=== PATIENT | female | born 1960 | race Caucasian/White ===

== ENCOUNTER 2018-03-29 00:33 | Inpatient (IN) | payer OTHER ==
[2018-03-29] MEDS ORDERED: morphine CARPU-JECT 4 MG/1 ML DISP.SYRIN IVPUSH ONE (00:58)
[2018-03-29] MEDS ORDERED: morphine SULFATE 4 MG/ML VIAL ONE ×2 (01:03→07:36)
--- NOTE | 2018-03-29 01:16 | PDOC ---
History of Present Illness - General Stated Complaint: POSSIBLE L HIP FX Time Seen by Provider: 03/29/18 00:57 History Source: Patient - History of Present Illness Initial Comments: 03/29/18 01:25 The patient is a 57 year old female with PMH of NIDDM and MDD who was BIBEMS following a mechanical fall. Patient was walking in the kitchen of a relative' s home when she tripped over a dog dish falling on her L side hitting her head. No LOC, was unable to stand. Relative called 911. Patient is visiting from [place] for the holidays. NKDA Surgical: B/L partial knee replacement, cholecystectomy, R carpal tunnel repair , pilonidal cyst removal Social: 5 cigarettes daily, social alcohol, social marijuana PMD: In [place] Past History - Past Medical History Allergies/Adverse Reactions: Allergies Allergy/AdvReac Type Severity Reaction Status Date / Time No Known Allergies Allergy Verified 03/29/18 01:41 Home Medications: Ambulatory Orders Fluoxetine HCl [Prozac] 40 mg PO DAILY 03/29/18 Hydroxyzine HCl 25 mg PO QID 03/29/18 Meloxicam 15 mg PO DAILY 03/29/18 Metformin HCl [Metformin HCl ER] 1,000 mg PO BID 03/29/18 Naproxen 500 mg PO BID 03/29/18 Omeprazole 40 mg PO DAILY 03/29/18 Prazosin HCl [Minipress] 2 mg PO HS 03/29/18 traZODone HCL [Desyrel -] 150 mg PO HS 03/29/18 Review of Systems - Review of Systems Constitutional: No: Chills, Fever HEENTM: No: Recent change in vision, Hearing Loss Respiratory: No: Cough, Shortness of Breath Cardiac (ROS): No: Chest Pain, Lightheadedness, Palpitations, Syncope ABD/GI: No: Constipated, Diarrhea, Nausea, Vomiting Neurological: No: Numbness, Tingling *Physical Exam - Physical Exam General Appearance: Yes: Nourished, Appropriately Dressed HEENT: positive: EOMI, Normal Voice, Hearing Grossly Normal, Other (No mastoid eccymosis, no periorbital ecchymosis, no lesions/hematoma) Neck: positive: Trachea midline, Supple Respiratory/Chest: positive: Lungs Clear, Normal Breath Sounds Cardiovascular: positive: S1, S2. negative: JVD Vascular Pulses: Dorsalis-Pedis (R): 2+, Doralis-Pedis (L): 2+ Extremity: positive: Normal Capillary Refill, Pelvis Stable, Other (L hip internally rotated; 2+ DP pulses B/L) Neurologic: positive: Fully Oriented, Alert ED Treatment Course - LABORATORY CBC & Chemistry Diagram: 03/29/18 01:38 03/29/18 01:38 - RADIOLOGY Radiology Studies Ordered: Category Date Time Status CXRPORT [CHEST X-RAY PORTABLE*] [RAD] Stat Radiology 03/29/18 01:02 Taken Medical Decision Making - Medical Decision Making 03/29/18 01:28 57 year old female BIBEMS for L hip pain following fall. Hypertensive (170/46), other VS unremarkable @ presentation. Patient taken directly to XR. My read of XR shows L communinuted femur fracture. Morphine for pain control. 03/29/18 01:30 Case d/w Dr. Huff will take patient to OR tomorrow. Patient NPO. Counseled on plan of care. Lab pending and will admit for pre/post operative evaluation. 03/29/18 02:10 CBC unremarkable. CMP, T&S pending. 03/29/18 03:11 CMP unremarkable. Will microblog hospitalist for admission. Patient's pain controlled with Morphine + Tylenol. VSS 03/29/18 04:03 Case d/w Dr. Vaca (Resident) - patient admitted to inpatient medicine service. *DC/Admit/Observation/Transfer Diagnosis at time of Disposition: Femur fracture, left - Discharge Dispostion Condition at time of disposition: Fair Decision to Admit order: Yes - Referrals - Patient Instructions - Post Discharge Activity
--- NOTE | 2018-03-29 01:39 | PDOC ---
Attending Attestation - Resident Resident Name: JemalKady - ED Attending Attestation I have performed the following: I have examined & evaluated the patient, The case was reviewed & discussed with the resident, I agree w/resident's findings & plan - HPI HPI: 03/29/18 01:56 Pt comes with left hip pain after she fell onto her left side when she tripped over her dog's food/water bowl. - Physicial Exam PE: 03/29/18 01:57 Agree with resident exam - Medical Decision Making 03/29/18 01:57 Preop labs Ortho nylon mender aware. Pt will be admitted to medicine and will go to the OR in the AM. 03/29/18 02:25 All labs are normal; glc slight elevation at 189 03/29/18 02:34 CXR is normal. Heart Score/ECG Review - ECG Intrepretation Rhythm: Regular Rhythm - [place]: Normal - P and RI Prominent R with upright T in V1 (true posterior NV): No Delta Wave(s) Present: No WPW: No - QRS Poor R Wave Progression: No Q Wave Present: No - ST and T Early Repolarization: No Non Specific ST-T Wave changes: Yes Flattened T Waves: No Prolonged Q-T Interval: No - ECG Impressions Normal ECG: Yes Non-specific ST Elevation: No Ischemic Changes: Yes (septal Ts)
[2018-03-29] MEDS ORDERED: ACETAMINOPHEN 1000 MG/100 ML VIAL (NON FORMULARY) IVPB ONE (01:53)
[2018-03-29 02:00] LABS: BASO % 0.9 % (0-2.0); EOS % 4.1 % (0-4.5); HEMOGLOBIN 13.6 GM/dL (10.7-15.3); LYMPH % 26.4 % (8-40); MCH 30.4 pg (25.7-33.7); MCHC 33.1 g/dl (32.0-36.0); MEAN CELL VOLUME 91.6 fl (80-96); MEAN PLT VOLUME 9.4 fl (7.5-11.1); MONO % 5.6 % (3.8-10.2); PLATELET COUNT 225 K/MM3 (134-434); RBC 4.47 M/mm3 (3.60-5.2); RDW 13.8 % (11.6-15.6); WHITE BLOOD COUNT 12.6 K/mm3 (4.0-10.0)
[2018-03-29 02:03] LABS: INR 0.91 (0.83-1.09); PROTHROMBIN TIME (PATIENT) 10.7 SEC (9.7-13.0)
[2018-03-29 02:06] LABS: ACTIVATED PTT 30.5 SECONDS (25.2-36.5)
[2018-03-29] MEDS ORDERED: ACETAMINOPHEN INJECTION 100 ML IVPB ONE (02:11)
[2018-03-29 02:13] LABS: ALBUMIN 3.9 g/dl (3.4-5.0); ALK PHOS 158 U/L (45-117); ANION GAP 9 MMOL/L (8-16); BILIRUBIN,TOTAL 0.3 mg/dL (0.2-1); BLOOD UREA NITROGEN 17 mg/dL (7-18); CALCIUM 8.8 mg/dL (8.5-10.1); CHLORIDE 103 mmol/L (98-107); CO2 25 mmol/L (21-32); GLUCOSE,RANDOM 189 mg/dL (74-106); POTASSIUM 3.8 mmol/L (3.5-5.1); SGOT/AST 30 U/L (15-37); SGPT/ALT 52 U/L (13-61); SODIUM 138 mmol/L (136-145); TOT PROT 7.8 g/dl (6.4-8.2)
[2018-03-29] MEDS ORDERED: HYDROmorphone HCL CARPU-JECT 2 MG/1 ML DISP.SYRIN IVPUSH ONE ×2 (02:35→04:12)
[2018-03-29] MEDS ORDERED: HYDROmorphone HCl 2 MG/ML VIAL ONE ×3 (02:37→16:46)
--- NOTE | 2018-03-29 04:01 | PN ---
Teaching Attending Note Name of Resident: Galen Vaca ATTENDING PHYSICIAN STATEMENT I saw and evaluated the patient. I reviewed the resident's note and discussed the case with the resident. I agree with the resident's findings and plan as documented. SUBJECTIVE: Patient is a 57 year old woman with PMH of NIDDM, B/L partial knee replacement, HTN, cholecystectomy, R carpal tunnel repair, pilonidal cyst removal, PTSD and Major deppressive disorder who was BIBEMS following a mechanical fall. Patient was walking in the kitchen of a relative's home when she tripped over a dog dish falling on her L side hitting her head. No LOC. Was unable to stand. Smokes cigarettes as well as marijuana. Patient is visiting from [place] for the holidays. OBJECTIVE: Alert Vital Signs Period Temp Pulse Resp BP Sys/Queen Pulse Ox Last 24 Hr 97.8 F 65 18 170/46 99 HEENT: No Jaundice, eye redness or discharge, PERRLA, EOMI. Normocephalic, atraumatic. External ears are normal and hearing is grossly intact. No nasal discharge. Neck: Supple, nontender. No palpable adenopathy or thyromegaly. No JVD Chest: Good effort. Clear to auscultation and percussion. Heart: Regular. No S3, rub or murmur Abdomen: Not distended, soft, nontender and no HSM. No rebound or guarding. Normoactive bowel sounds. Ext: Peripheral pulses intact. No leg edema. Left hip tender and internally rotated. Distal sensory and motor function intact. Skin: Warm and dry. No petechiae, rash or ecchymosis. Neuro: Alert. Oriented x3. CN 2-12 grossly intact. Sensation grossly intact in all four extremities and DTR are symmetric. Abnormal Lab Results 03/29/18 03/29/18 01:38 01:38 WBC 12.6 H Random Glucose 189 H Alkaline Phosphatase 158 H ASSESSMENT AND PLAN: 1. Left hip fracture after Mechanical fall - Being kept NPO for possible surgery today. Will give IV 0.45% NaCl at 30 ml/hour. Pain control with IV morphine. Leukocytosis likely due to stress, but will send UA to exclude infection. Repeat BP improved. Will restart home antihypertensive drugs to ultimately attain normotension. Nonpharmacologic measures to control hypertension like weight loss, salt restriction and exercise discussed. Patient counseled to stop taking Naprosyn and Meloxicam because potential renal and GI side effects. 2. DM - For now, we will hold the home diabetes drugs and implement sliding scale insulin regimen. Provide comprehensive diabetes care with patient teaching and counseling about the importance of euglycemia, eye care and foot care. 3. Tobacco Use We will provide patient all the necessary assistance to facilitate smoking cessation and prescribe Nicotine patch. 4. Obesity - Will provide patient all the necessary assistance, counseling and positive reinforcement to facilitate weight loss. Consult tamper operator. 5. DVT prophylaxis - SCDs. Start Lovenox post op. 6. Advance directives - Full code
[2018-03-29] MEDS ORDERED: morphine SULFATE 4 MG/ML VIAL IVPUSH PRN (04:51)
--- NOTE | 2018-03-29 04:51 | HP ---
CHIEF COMPLAINT: fall, L hip frx PCP: John[facility] in [place] HISTORY OF PRESENT ILLNESS: 57 yo F PMH of NIDDM, B/L partial knee replacement, cholecystectomy, appendectomy, R carpal tunnel repair, pilonidal cyst removal, PTSD and MDD, presents following a L side mechanical fall. Patient was walking in the kitchen of a relative's home when she tripped over a dog dish falling on her L side. pt does not know whether she hit her head. No LOC or any lightheadedness prior to fall. Was unable to stand after fall. denies fevers, GONSALEZ, sob, cp, urinary sxs, n/v/d, recent illnesses, or neuro deficits. pt does endorse chronic tingling in feet b/l due to her DM. denies DM ulcers. Patient is visiting from [place] for the holidays. ER course was notable for: (1) Hypertensive (170/46), other VS unremarkable @ presentation. (2) CXR (3)Dr. Huff will take patient to OR tomorrow. Patient NPO. Morphine, Tylenol, dilauded Recent Travel: PAST MEDICAL HISTORY: has had recent eye f/u within past 3 mo. per pt last A1c 7.6 PAST SURGICAL HISTORY: as per hpi Social History: Smokin cigarettes daily for 30 yr. quit 2 yr ago but restarted 2 wks ago, Alcohol: occasional Drugs: occasional marijuana Family History: HTN, DM . sister from cervical CA at 45 yo Allergies - compazine - lock jaw No Known Allergies Allergy (Verified 03/29/18 01:41) HOME MEDICATIONS: Home Medications Medication Instructions Recorded Fluoxetine HCl [Prozac] 40 mg PO DAILY 03/29/18 Hydroxyzine HCl 25 mg PO QID 03/29/18 Meloxicam 15 mg PO DAILY 03/29/18 Metformin HCl [Metformin HCl ER] 1,000 mg PO BID 03/29/18 Naproxen 500 mg PO BID 03/29/18 Omeprazole 40 mg PO DAILY 03/29/18 Prazosin HCl [Minipress] 2 mg PO HS 03/29/18 traZODone HCL [Desyrel -] 150 mg PO HS 03/29/18 REVIEW OF SYSTEMS as per HPI PHYSICAL EXAMINATION Vital Signs - 24 hr 03/29/18 03/29/18 03/29/18 01:39 04:20 04:49 Temperature 97.8 F Pulse Rate 65 Pulse Rate [ 69 79 Apical] Respiratory 18 20 18 Rate Blood Pressure 170/46 L Blood Pressure 135/84 116/80 [Left Arm] O2 Sat by Pulse 99 99 97 Oximetry (%) GENERAL: Awake, alert, and fully oriented, in no acute distress. HEAD: Normal with no signs of trauma. EYES: Pupils equal, round and reactive to light, extraocular movements intact, sclera anicteric, conjunctiva clear. No lid lag. EARS, NOSE, THROAT: Ears normal, nares patent, oropharynx clear without exudates. Moist mucous membranes. NECK: Normal range of motion, supple without lymphadenopathy, JVD, or masses. LUNGS: Breath sounds equal, clear to auscultation bilaterally. No wheezes, and no crackles. No accessory muscle use. HEART: Regular rate and rhythm, normal S1 and S2 without murmur, rub or gallop. ABDOMEN: Soft, nontender, not distended, normoactive bowel sounds, no guarding, no rebound, no masses. No hepatomegaly or splenomegaly. MUSCULOSKELETAL: Normal range of motion at all joints. No bony deformities or tenderness. No CVA tenderness. UPPER EXTREMITIES: 2+ pulses, warm, well-perfused. No cyanosis. No clubbing. No peripheral edema. LOWER EXTREMITIES: 2+ pulses, warm, well-perfused. Left hip tender and internally rotated. Distal sensory and motor function intact. No peripheral edema. NEUROLOGICAL: Cranial nerves II-XII intact. Normal speech. Normal gait. PSYCHIATRIC: Cooperative. Good eye contact. Appropriate mood and affect. SKIN: Warm, dry, normal turgor, no rashes or lesions noted, normal capillary refill. Laboratory Results - last 24 hr 03/29/18 03/29/18 03/29/18 01:38 01:38 01:38 WBC 12.6 H RBC 4.47 Hgb 13.6 Hct 41.0 MCV 91.6 MCH 30.4 MCHC 33.1 RDW 13.8 Plt Count 225 MPV 9.4 Absolute Neuts (auto) 8.0 Neutrophils % 63.0 Lymphocytes % 26.4 Monocytes % 5.6 Eosinophils % 4.1 Basophils % 0.9 Nucleated RBC % 0 PT with INR 10.70 INR 0.91 PTT (Actin FS) 30.5 Sodium 138 Potassium 3.8 Chloride 103 Carbon Dioxide 25 Anion Gap 9 BUN 17 Creatinine 1.0 Creat Clearance w eGFR 56.95 Random Glucose 189 H Calcium 8.8 Total Bilirubin 0.3 AST 30 ALT 52 Alkaline Phosphatase 158 H Total Protein 7.8 Albumin 3.9 Blood Type Antibody Screen 03/29/18 01:38 WBC RBC Hgb Hct MCV MCH MCHC RDW Plt Count MPV Absolute Neuts (auto) Neutrophils % Lymphocytes % Monocytes % Eosinophils % Basophils % Nucleated RBC % PT with INR INR PTT (Actin FS) Sodium Potassium Chloride Carbon Dioxide Anion Gap BUN Creatinine Creat Clearance w eGFR Random Glucose Calcium Total Bilirubin AST ALT Alkaline Phosphatase Total Protein Albumin Blood Type O POSITIVE Antibody Screen Negative ASSESSMENT/PLAN: 57 yo F PMH of NIDDM, B/L partial knee replacement, cholecystectomy, appendectomy, R carpal tunnel repair, pilonidal cyst removal, PTSD and MDD, presents following a L side mechanical fall and found w/ L hip frx. Left hip fracture s/p Mechanical fall - XR showing L hip frx ortho consult NPO for possible surgery today IV 0.45% NaCl at 30 ml/hour s/p Morphine, Tylenol, dilauded in ED Pain control with IV morphine and Tylenol can start bowel regimen following surgery Leukocytosis likely 2/2 stress, but will send UA to exclude infection. avoid Naprosyn and Meloxicam because potential renal and GI side effects. CXR appears wnl and w/o focal consolidations possible bone fragility w/ elevated alk phosph and frx in middle/elderly aged pt. will order PTH to w/u possible causes of acute frx Hypertensive (170/46), other VS unremarkable @ presentation - Repeat BP improved Psych c/w fluoxetine consider restarting other home psych meds may need med rec for hydroxyzine DM - per pt last A1c 7.6 hold home diabetes drugs BGM ACHS ISS A1C FEN IV 0.45% NaCl at 30 ml/hour replete prn NPO prophylaxis - SCDs. Start Lovenox post op. protonix Advance directives - Full code Dispo med/surg NPO for possible surgery today Visit type - Emergency Visit Emergency Visit: Yes ED Registration Date: 03/29/18 Care time: The patient presented to the Emergency Department on the above date and was hospitalized for further evaluation of their emergent condition. - New Patient This patient is new to me today: Yes Date on this admission: 03/29/18 - Critical Care Critical Care patient: No
[2018-03-29] MEDS ORDERED: ACETAMINOPHEN 1000 MG/100 ML VIAL (NON FORMULARY) IVPB PRN (05:02)
[2018-03-29] MEDS ORDERED: PANTOPRAZOLE 40 MG TABLET (FP) PO SCH ×2 (05:07→10:00)
[2018-03-29] MEDS ORDERED: SODIUM CHLORIDE 0.45% 1,000 ML IV SCH (05:45)
[2018-03-29 06:18] LABS: BASO % 0.5 % (0-2.0); EOS % 1.8 % (0-4.5); HEMATOCRIT 38.9 % (32.4-45.2); HEMOGLOBIN 12.5 GM/dL (10.7-15.3); LYMPH % 24.1 % (8-40); MCH 29.6 pg (25.7-33.7); MCHC 32.1 g/dl (32.0-36.0); MEAN CELL VOLUME 92.4 fl (80-96); MEAN PLT VOLUME 9.2 fl (7.5-11.1); MONO % 6.8 % (3.8-10.2); NEUT % 66.8 % (42.8-82.8); PLATELET COUNT 264 K/MM3 (134-434); RBC 4.21 M/mm3 (3.60-5.2); RDW 13.6 % (11.6-15.6); WHITE BLOOD COUNT 21.5 K/mm3 (4.0-10.0)
[2018-03-29] MEDS ORDERED: INSULIN (NOVOLOG) ASPART 100 UNITS/ML 10ML VIAL ONE (06:34)
[2018-03-29] MEDS: INSULIN SLIDING SCALE (NOVOLOG) 1 VIAL SQ SCH ×4 (06:42→22:11)
[2018-03-29 08:03] LABS: ALBUMIN 3.6 g/dl (3.4-5.0); ALK PHOS 114 U/L (45-117); ANION GAP 5 MMOL/L (8-16); BILIRUBIN,TOTAL 0.3 mg/dL (0.2-1); BLOOD UREA NITROGEN 17 mg/dL (7-18); CALCIUM 8.5 mg/dL (8.5-10.1); CHLORIDE 106 mmol/L (98-107); CO2 27 mmol/L (21-32); CREATININE 1.1 mg/dL (0.55-1.3); GLUCOSE,RANDOM 235 mg/dL (74-106); MAGNESIUM 1.8 mg/dL (1.8-2.4); PHOSPHOROUS 5.3 mg/dL (2.5-4.9); POTASSIUM 4.2 mmol/L (3.5-5.1); SGOT/AST 26 U/L (15-37); SGPT/ALT 45 U/L (13-61); SODIUM 138 mmol/L (136-145); TOT PROT 6.9 g/dl (6.4-8.2)
[2018-03-29] MEDS ORDERED: FLUoxetine HCL 20 MG CAPSULE (FP) PO SCH (10:00)
[2018-03-29] MEDS ORDERED: hydrOXYzine HCL 25 MG TABLET (FP) PO SCH (10:00)
[2018-03-29] MEDS ORDERED: PATIENT'S OWN MEDICATION (NON-FORMULARY) (Fluoxetine Hcl [Prozac] 40 MG) PO SCH (10:00)
--- NOTE | 2018-03-29 10:46 | PN ---
Physical Exam: SUBJECTIVE: Patient seen and examined at bedside. Pt still complaining of L sided hip pain. Unable to move due to pain. Otherwise, no acute events overnight. OBJECTIVE: Vital Signs Temperature 97.8 F 03/29/18 09:00 Pulse Rate 72 03/29/18 09:00 Respiratory Rate 18 03/29/18 09:00 Blood Pressure 109/65 03/29/18 09:00 O2 Sat by Pulse Oximetry (%) 95 03/29/18 06:21 GENERAL: Lethargic, alert, and fully oriented, in no acute distress. HEAD: Normal with no signs of trauma. EYES: Pupils equal, round and reactive to light, extraocular movements intact, sclera anicteric, conjunctiva clear. No lid lag. EARS, NOSE, THROAT: Ears normal, nares patent, oropharynx clear without exudates. Moist mucous membranes. NECK: Normal range of motion, supple without lymphadenopathy, JVD, or masses. LUNGS: Breath sounds equal, clear to auscultation bilaterally. No wheezes, and no crackles. No accessory muscle use. HEART: Regular rate and rhythm, normal S1 and S2 without murmur, rub or gallop. ABDOMEN: Soft, nontender, not distended, normoactive bowel sounds, no guarding, no rebound, no masses. No hepatomegaly or splenomegaly. MUSCULOSKELETAL: Normal range of motion at all joints. No bony deformities or tenderness. No CVA tenderness. UPPER EXTREMITIES: 2+ pulses, warm, well-perfused. No cyanosis. No clubbing. No peripheral edema. LOWER EXTREMITIES: 2+ pulses, warm, well-perfused. Left hip tender and internally rotated. Distal sensory and motor function intact. No peripheral edema. NEUROLOGICAL: Cranial nerves II-XII intact. Normal speech. PSYCHIATRIC: Cooperative. Good eye contact. Appropriate mood and affect. SKIN: Warm, dry, normal turgor, no rashes or lesions noted, normal capillary refill. CBCD WBC 21.5 K/mm3 (4.0-10.0) H 03/29/18 05:40 RBC 4.21 M/mm3 (3.60-5.2) 03/29/18 05:40 Hgb 12.5 GM/dL (10.7-15.3) 03/29/18 05:40 Hct 38.9 % (32.4-45.2) 03/29/18 05:40 MCV 92.4 fl (80-96) 03/29/18 05:40 MCHC 32.1 g/dl (32.0-36.0) 03/29/18 05:40 RDW 13.6 % (11.6-15.6) 03/29/18 05:40 Plt Count 264 K/MM3 (134-434) 03/29/18 05:40 MPV 9.2 fl (7.5-11.1) 03/29/18 05:40 CMP Sodium 138 mmol/L (136-145) 03/29/18 06:00 Potassium 4.2 mmol/L (3.5-5.1) 03/29/18 06:00 Chloride 106 mmol/L (98-107) 03/29/18 06:00 Carbon Dioxide 27 mmol/L (21-32) 03/29/18 06:00 Anion Gap 5 MMOL/L (8-16) L 03/29/18 06:00 BUN 17 mg/dL (7-18) 03/29/18 06:00 Creatinine 1.1 mg/dL (0.55-1.3) 03/29/18 06:00 Creat Clearance w eGFR 51.02 (>60) 03/29/18 06:00 Calcium 8.5 mg/dL (8.5-10.1) 03/29/18 06:00 Total Bilirubin 0.3 mg/dL (0.2-1) 03/29/18 06:00 AST 26 U/L (15-37) 03/29/18 06:00 ALT 45 U/L (13-61) 03/29/18 06:00 Alkaline Phosphatase 114 U/L (45-117) 03/29/18 06:00 Total Protein 6.9 g/dl (6.4-8.2) 03/29/18 06:00 Albumin 3.6 g/dl (3.4-5.0) 03/29/18 06:00 Active Medications Acetaminophen (Ofirmev Injection -) 1,000 mg IVPB Q6H PRN PRN Reason: PAIN LEVEL 6-10 Fluoxetine HCl (Prozac -) 40 mg PO DAILY GUILLERMO Last Admin: 03/29/18 10:21 Dose: Not Given Sodium Chloride (1/2 Normal Saline) 1,000 mls @ 30 mls/hr IV ASDIR [facility] Last Admin: 03/29/18 06:20 Dose: 30 mls/hr Insulin Aspart (Novolog Vial Sliding Scale -) 1 vial SQ [facility]; Protocol Last Admin: 03/29/18 06:42 Dose: 6 unit Morphine Sulfate (Morphine Sulfate) 4 mg IVPUSH Q4H PRN PRN Reason: PAIN LEVEL 7 - 10 Last Admin: 03/29/18 07:40 Dose: 4 mg Pantoprazole Sodium (Protonix -) 40 mg PO DAILY [facility] Last Admin: 03/29/18 10:21 Dose: Not Given IMAGING: * Hip/Pelvis x-ray: Acute left femoral intertrochanteric fx * CXR: No acute pathology. * Renal U/S: ASSESSMENT/PLAN: 57 yo F PMH of NIDDM, B/L partial knee replacement, cholecystectomy, appendectomy, R carpal tunnel repair, pilonidal cyst removal, PTSD and MDD, presents following a L side mechanical fall and found w/ L hip frx. #Left hip fracture s/p Mechanical fall -Hip/Pelvis x-ray noted above -Ortho consult: OR today; f/u ortho recs -IV 0.45% NaCl at 30 ml/hour -Morphine 4mg Q4H IVP PRN for pain -Can start bowel regimen following surgery -Leukocytosis likely 2/2 stress, but will send UA to exclude infection. -Avoid Naprosyn and Meloxicam because potential renal and GI side effects. -Possible bone fragility w/ elevated Alk Phos and fracture in middle/elderly aged pt. Will order PTH to w/u possible causes of acute frx; PTH pending #MDD Cont home med: -Fluoxetine 40 mg PO QD consider restarting other home psych meds may need med rec for hydroxyzine #DM - per pt last A1c 7.6 -hold home diabetes drugs; A1c 8.5 -BGM ACHS -ISS #FEN -1/2NS at 30 -recheck lytes in AM -NPO for surgery #Prophylaxis -DVT: SCDs. Start Lovenox post op once cleared by surg -GI: Protonix 40 mg PO QD Dispo -cont to monitor on med-surg -full code Visit type - Emergency Visit Emergency Visit: Yes ED Registration Date: 03/29/18 Care time: The patient presented to the Emergency Department on the above date and was hospitalized for further evaluation of their emergent condition. - New Patient This patient is new to me today: Yes Date on this admission: 03/29/18 - Critical Care Critical Care patient: No
[2018-03-29 11:01] LABS: ANISOCYTOSIS 2+; MACROCYTOSIS 0; PLATELET ESTIMATE NORMAL; TEAR DROP CELLS 1+
[2018-03-29] MEDS ORDERED: MIDAZOLAM HCL 2 MG/2 ML SINGLE DOSE VIAL ONE ×2 (13:17→14:11)
[2018-03-29] MEDS ORDERED: BUPIVACAINE HCL/PF 0.5% (5MG/ML) 10 ML VIAL ONE (13:30)
[2018-03-29] MEDS ORDERED: ceFAZolin SODIUM 1 GM VIAL ONE (14:00)
[2018-03-29] MEDS ORDERED: SODIUM CHLORIDE 0.9% P/F 10 ML VIAL IJ ONE (14:00)
[2018-03-29] MEDS ORDERED: ePHEDrine SULFATE 50 MG/1 ML AMPULE ONE (14:08)
[2018-03-29] MEDS ORDERED: ceFAZolin SODIUM 1 GM VIAL IVPB ONE (14:08)
--- NOTE | 2018-03-29 14:31 | EKG ---
Test Reason : Blood Pressure : / mmHG Vent. Rate : 068 BPM Atrial Rate : 068 BPM P-R Int : 136 ms QRS Dur : 078 ms QT Int : 428 ms P-R-T Axes : 061 016 052 degrees QTc Int : 455 ms POOR DATA QUALITY, INTERPRETATION MAY BE ADVERSELY AFFECTED NORMAL SINUS RHYTHM NORMAL ECG NO PREVIOUS ECGS AVAILABLE Confirmed by Basilio Swenson ([id number]) on 03/29/2018 2:30:35 PM Referred By: Confirmed By:Basilio Swenson
--- NOTE | 2018-03-29 14:59 | CONSULT ---
Consult - text type - Consultation Consultation Note: FULL CONSULT DICTATED IMP: L IT HIP FX PLAN: --> OR FOR L GAMMA NAIL TODAY
[2018-03-29] MEDS ORDERED: LACTATED RINGERS SOLUTION 1,000 ML IV SCH (15:00)
--- NOTE | 2018-03-29 15:00 | OP ---
Operative Note - Note: Operative Date: 03/29/18 Pre-Operative Diagnosis: L IT HIP FX Operation: L GAMMA NAIL Post-Operative Diagnosis: Same as Pre-op Surgeon: Maynor Huff Anesthesia: Spinal Estimated Blood Loss (mls): 50 Operative Report Dictated: Yes
--- NOTE | 2018-03-29 15:59 | CONS ---
DATE OF CONSULTATION: 03/29/2018 ORTHOPEDIC CONSULTATION/[facility] The patient is a 57-year-old [id number] diabetic, smoker, status post a fall earlier this evening, complaining of pain in her left hip and inability to walk. She was seen in the emergency room, where they called me at 1:30 in the morning, informing me the patient had a left intertrochanteric hip fracture. The patient was admitted to the hospital for my evaluation. On physical exam, her left lower extremity showed it externally rotated, markedly increased pain with flexion/extension and any motion of the left hip. Calves were soft, nontender. Full range of motion of left knee, ankle, and toes. She does have surgical scars on the medial aspect of bilateral knees where partial knee replacements were performed at another institution. X-rays revealed a left intertrochanteric hip fracture. IMPRESSION: Left intertrochanteric hip fracture. Risks, benefits, alternatives discussed with patient and with family in great detail. She is visiting here from [place] and staying with 2 family members here. We went through the risks, benefits, and alternatives. Patient will be booked for a left gamma nail today. OTTO SOW M.D. [id number]
--- NOTE | 2018-03-29 16:04 | PN ---
Teaching Attending Note Name of Resident: Henrietta Goddard ATTENDING PHYSICIAN STATEMENT I saw and evaluated the patient. I reviewed the resident's note and discussed the case with the resident. I agree with the resident's findings and plan as documented. SUBJECTIVE: Patient is a 57yo female c/o having left hip pain s/p fall. C/o having severe left hip pain. OBJECTIVE: Vital Signs Temperature 97.8 F 03/29/18 09:00 Pulse Rate 72 03/29/18 09:00 Respiratory Rate 18 03/29/18 09:00 Blood Pressure 109/65 03/29/18 09:00 O2 Sat by Pulse Oximetry (%) 99 03/29/18 07:45 GENERAL: Lethargic, alert, and fully oriented, in no acute distress. HEAD: Normal with no signs of trauma. EYES: Pupils equal, round and reactive to light, extraocular movements intact, sclera anicteric, conjunctiva clear. EARS, NOSE, THROAT: Ears normal, oropharynx clear without exudates. Moist mucous membranes. NECK: Normal range of motion, supple without lymphadenopathy, JVD, or masses. LUNGS: Breath sounds equal, clear to auscultation bilaterally. No wheezes, and no crackles. No accessory muscle use. HEART: Regular rate and rhythm, normal S1 and S2 without murmur, rub or gallop. ABDOMEN: Soft, nontender, not distended, normoactive bowel sounds, no guarding, no rebound, no masses. No hepatomegaly or splenomegaly. EXTREMITIES: 2+ pulses, warm, well-perfused. Left hip tender and internally rotated. Distal sensory and motor function intact. No peripheral edema. NEUROLOGICAL: Cranial nerves II-XII intact. Normal speech. PSYCHIATRIC: Cooperative. Good eye contact. Appropriate mood and affect. SKIN: Warm, dry, normal turgor, no rashes or lesions noted, normal capillary refill. CBCD WBC 21.5 K/mm3 (4.0-10.0) H 03/29/18 05:40 RBC 4.21 M/mm3 (3.60-5.2) 03/29/18 05:40 Hgb 12.5 GM/dL (10.7-15.3) 03/29/18 05:40 Hct 38.9 % (32.4-45.2) 03/29/18 05:40 MCV 92.4 fl (80-96) 03/29/18 05:40 MCHC 32.1 g/dl (32.0-36.0) 03/29/18 05:40 RDW 13.6 % (11.6-15.6) 03/29/18 05:40 Plt Count 264 K/MM3 (134-434) 03/29/18 05:40 MPV 9.2 fl (7.5-11.1) 03/29/18 05:40 CMP Sodium 138 mmol/L (136-145) 03/29/18 06:00 Potassium 4.2 mmol/L (3.5-5.1) 03/29/18 06:00 Chloride 106 mmol/L (98-107) 03/29/18 06:00 Carbon Dioxide 27 mmol/L (21-32) 03/29/18 06:00 Anion Gap 5 MMOL/L (8-16) L 03/29/18 06:00 BUN 17 mg/dL (7-18) 03/29/18 06:00 Creatinine 1.1 mg/dL (0.55-1.3) 03/29/18 06:00 Creat Clearance w eGFR 51.02 (>60) 03/29/18 06:00 Random Glucose 235 mg/dL (74-106) H 03/29/18 06:00 Calcium 8.5 mg/dL (8.5-10.1) 03/29/18 06:00 Total Bilirubin 0.3 mg/dL (0.2-1) 03/29/18 06:00 AST 26 U/L (15-37) 03/29/18 06:00 ALT 45 U/L (13-61) 03/29/18 06:00 Alkaline Phosphatase 114 U/L (45-117) 03/29/18 06:00 Total Protein 6.9 g/dl (6.4-8.2) 03/29/18 06:00 Albumin 3.6 g/dl (3.4-5.0) 03/29/18 06:00 Current Medications Generic Name Dose Route Start Last Admin Trade Name Freq PRN Reason Stop Dose Admin Acetaminophen 1,000 mg 03/29/18 15:32 Ofirmev Injection - IVPB Q6H PRN PAIN LEVEL 6-10 Enoxaparin Sodium 40 mg 03/30/18 10:00 Lovenox - SQ DAILY [facility] Fluoxetine HCl 40 mg 03/30/18 10:00 Prozac - PO DAILY [facility] Lactated Ringer's 1,000 mls @ 75 mls/hr 03/29/18 15:32 Lactated Ringers Solution IV ASDIR [facility] Sodium Chloride 1,000 mls @ 30 mls/hr 03/29/18 15:32 1/2 Normal Saline IV ASDIR [facility] Cefazolin Sodium 1 gm/ 50 mls @ 100 mls/hr 03/29/18 20:00 Dextrose IVPB 03/30/18 04:29 Q8H [facility] Insulin Aspart 1 vial 03/29/18 16:30 Novolog Vial Sliding Scale - SQ ACHS [facility] Protocol Morphine Sulfate 4 mg 03/29/18 15:32 Morphine Sulfate IVPUSH Q4H PRN PAIN LEVEL 7 - 10 Pantoprazole Sodium 40 mg 03/30/18 10:00 Protonix - PO DAILY [facility] Home Medications Medication Instructions Recorded Fluoxetine HCl [Prozac] 40 mg PO DAILY 03/29/18 Hydroxyzine HCl 25 mg PO QID 03/29/18 Meloxicam 15 mg PO DAILY 03/29/18 Metformin HCl [Metformin HCl ER] 1,000 mg PO BID 03/29/18 Naproxen 500 mg PO BID 03/29/18 Omeprazole 40 mg PO DAILY 03/29/18 Prazosin HCl [Minipress] 2 mg PO HS 03/29/18 traZODone HCL [Desyrel -] 150 mg PO HS 03/29/18 ASSESSMENT AND PLAN: 57 yo F PMH of NIDDM, B/L partial knee replacement, cholecystectomy, appendectomy, R carpal tunnel repair, pilonidal cyst removal, PTSD and MDD, presents following a L side mechanical fall and found w/ L hip frx. #POD# 0 s/p Left hip fracture with repair s/p Mechanical fall , on IV tylenol - #MDD : cont home med:Fluoxetine 40 mg PO QD #T2Dm A1c 8.5, BGM ACHS, ISS -DVT Px: SCDs. Start Lovenox post op once cleared by surg -GI: Protonix 40 mg PO QD
--- NOTE | 2018-03-29 17:33 | SPEC ---
DATE OF OPERATION: 03/29/2018 PREOPERATIVE DIAGNOSIS: Left intertrochanteric hip fracture. POSTOPERATIVE DIAGNOSIS: Left intertrochanteric hip fracture. PROCEDURE: Left Gamma nailing. SURGICAL ATTENDING: Maynor Huff MD [employer] OPERATOR: REBECCA Mao ANESTHESIA: Spinal. CLOSURE: A short 125 degree Gamma nail with appropriate interlocking screws, No. 1 Vicryl fascia, 0 and 2-0 subcutaneous, fidelina to skin. ESTIMATED BLOOD LOSS: 50 mL. COMPLICATIONS: None. CONDITION: To Recovery in stable condition. DESCRIPTION OF THE PROCEDURE: The patient was taken to the operating room on March 29, 2018. IV Kefzol was administered prophylactically prior to the case. Anesthesia was administered by the anesthesiologist. The patient was then fastened to the fracture table with all prominences well padded. Excellent reduction of the fracture was confirmed in AP and lateral plane by use of fluoroscopy. The left hip area was then prepped and draped in the usual sterile fashion by use of a shower curtain. A small 2-cm longitudinal incision over the tip of the greater trochanter was incised, hemostasis achieved using Bovie cautery. Sharp dissection was carried through the fascia. A guidewire was drilled from the tip of the greater trochanter into the intramedullary canal past the fracture. This was directed by fluoroscopy in both the AP and lateral plane. This was overreamed with a proximal reamer. A short Gamma nail was then malleted down into place. Using the outrigger and a small stab incision laterally, a guidewire was drilled from the lateral aspect of the femur, through the jamee, through the neck into the femoral head. Proper placement was confirmed in the AP and lateral plane by using the image intensifier. The guidewire was measured for length, reamed with a triple reamer, and then screwed with the appropriate-sized lag screw. With the traction removed, the compression device was used to compress the fracture. A set screw was placed from above in the dynamic fashion. Again using the outrigger and through a small stab incision distally, a distal hole was drilled, depth gauged and screwed with the appropriate length locking screw in the static hole. The outrigger was removed. The x-rays in the AP and lateral plane revealed excellent position of the hardware with excellent reduction of the fracture. All incisions were irrigated out with copious amounts of irrigation. The fascia was closed in 0 Vicryl, 2-0 subcutaneous, and fidelina to the skin. Sterile pressure dressing was applied, patient awakened from anesthesia and transferred to Recovery in stable condition. No complications. Estimated blood loss negligible. Barbara MCCOY/[id number]
[2018-03-29] MEDS ORDERED: HYDROmorphone HCl 2 MG/ML VIAL IVPUSH ONE ×2 (18:00→18:11)
[2018-03-29] MEDS ORDERED: CEFAZOLIN 1 GM in DEXTROSE 5%-WATER - 50 ML IVPB SCH (18:00)
[2018-03-29] MEDS: SODIUM CHLORIDE 0.45% 1,000 ML IV SCH ×2 (18:30→19:00)
[2018-03-29] MEDS: morphine SULFATE 4 MG/ML VIAL IVPUSH PRN ×2 (20:08→23:51)
[2018-03-29] MEDS: LACTATED RINGERS SOLUTION 1,000 ML IV SCH (20:44)
[2018-03-29] MEDS: CEFAZOLIN 1 GM in DEXTROSE 5%-WATER - 50 ML IVPB SCH ×2 (21:57→21:59)
[2018-03-29] MEDS: CEFAZOLIN 1 GM/D5W 1 GM/50 ML BAG IVPB SCH (22:00)
[2018-03-29 22:43] VITALS: BMI 30.1
[2018-03-30] MEDS: morphine SULFATE 4 MG/ML VIAL IVPUSH PRN ×3 (03:58→17:45)
[2018-03-30] MEDS: CEFAZOLIN 1 GM/D5W 1 GM/50 ML BAG IVPB SCH (04:55)
[2018-03-30] MEDS: ACETAMINOPHEN 1000 MG/100 ML VIAL (NON FORMULARY) IVPB PRN ×2 (05:39→11:39)
[2018-03-30] MEDS: INSULIN SLIDING SCALE (NOVOLOG) 1 VIAL SQ SCH ×4 (06:42→21:07)
[2018-03-30] MEDS ORDERED: INSULIN (NOVOLOG) ASPART 100 UNITS/ML 10ML VIAL ONE (06:50)
[2018-03-30 07:31] LABS: BASO % 0.9 % (0-2.0); EOS % 1.2 % (0-4.5); HEMATOCRIT 31.4 % (32.4-45.2); HEMOGLOBIN 10.2 GM/dL (10.7-15.3); LYMPH % 24.7 % (8-40); MCH 29.8 pg (25.7-33.7); MCHC 32.6 g/dl (32.0-36.0); MEAN CELL VOLUME 91.4 fl (80-96); MEAN PLT VOLUME 9.5 fl (7.5-11.1); MONO % 7.1 % (3.8-10.2); NEUT % 66.1 % (42.8-82.8); PLATELET COUNT 169 K/MM3 (134-434); RBC 3.44 M/mm3 (3.60-5.2); RDW 13.6 % (11.6-15.6); WHITE BLOOD COUNT 11.3 K/mm3 (4.0-10.0)
--- NOTE | 2018-03-30 08:08 | PN ---
Physical Exam: SUBJECTIVE: Patient seen and examined at bedside. S/p L gamma nail sx, POD #1. Pt complaining of pain in L leg, requesting more pain meds for relief. Denies chest pain, sob, abd pain, n/v. Good PO intake, pt is eating breakfast during interview. OBJECTIVE: Vital Signs Temperature 98.7 F 03/30/18 10:00 Pulse Rate 70 03/30/18 10:00 Respiratory Rate 20 03/30/18 10:00 Blood Pressure 120/60 03/30/18 10:00 O2 Sat by Pulse Oximetry (%) 96 03/30/18 09:00 GENERAL: AAOx3. NAD. HEENT: AT/NC. EOMI. DAYAMI. Moist mucus membranes. No facial droop noted. NECK: Supple. No LAD/JVD. LUNGS: CTA B/L. No wheezes noted. HEART: RRR. Normal S1, S2. No murmurs noted. ABDOMEN: Obese. Soft NT/ND. Hypoactive bowel sounds. EXTREMITIES: 2+ pulses, warm, well-perfused, no edema. L hip seen with surgical dressing c/d/i. Slight visible blood noted on dressing, but unchanged since yesterday. NEUROLOGICAL: Follows commands. Normal speech. PSYCH: Normal mood, normal affect. SKIN: Warm, dry, normal turgor, no rashes or lesions noted CBCD WBC 11.3 K/mm3 (4.0-10.0) H 03/30/18 06:00 RBC 3.44 M/mm3 (3.60-5.2) L 03/30/18 06:00 Hgb 10.2 GM/dL (10.7-15.3) L 03/30/18 06:00 Hct 31.4 % (32.4-45.2) L D 03/30/18 06:00 MCV 91.4 fl (80-96) 03/30/18 06:00 MCHC 32.6 g/dl (32.0-36.0) 03/30/18 06:00 RDW 13.6 % (11.6-15.6) 03/30/18 06:00 Plt Count 169 K/MM3 (134-434) D 03/30/18 06:00 MPV 9.5 fl (7.5-11.1) 03/30/18 06:00 CMP Sodium 135 mmol/L (136-145) L 03/30/18 06:00 Potassium 4.1 mmol/L (3.5-5.1) 03/30/18 06:00 Chloride 102 mmol/L (98-107) 03/30/18 06:00 Carbon Dioxide 26 mmol/L (21-32) 03/30/18 06:00 Anion Gap 7 MMOL/L (8-16) L 03/30/18 06:00 BUN 18 mg/dL (7-18) 03/30/18 06:00 Creatinine 1.0 mg/dL (0.55-1.3) 03/30/18 06:00 Creat Clearance w eGFR 56.95 (>60) 03/30/18 06:00 Calcium 8.3 mg/dL (8.5-10.1) L 03/30/18 06:00 Total Bilirubin 0.5 mg/dL (0.2-1) 03/30/18 06:00 AST 20 U/L (15-37) 03/30/18 06:00 ALT 33 U/L (13-61) 03/30/18 06:00 Alkaline Phosphatase 71 U/L (45-117) 03/30/18 06:00 Total Protein 6.2 g/dl (6.4-8.2) L 03/30/18 06:00 Albumin 3.2 g/dl (3.4-5.0) L 03/30/18 06:00 Active Medications Acetaminophen (Ofirmev Injection -) 1,000 mg IVPB Q6H PRN PRN Reason: PAIN LEVEL 6-10 Last Admin: 03/30/18 11:39 Dose: 1,000 mg Enoxaparin Sodium (Lovenox -) 40 mg SQ DAILY [facility] Last Admin: 03/30/18 09:06 Dose: 40 mg Fluoxetine HCl (Prozac -) 40 mg PO DAILY [facility] Last Admin: 03/30/18 09:06 Dose: Not Given Lactated Ringer's (Lactated Ringers Solution) 1,000 mls @ 75 mls/hr IV ASDIR [facility] Last Admin: 03/29/18 20:44 Dose: Not Given Sodium Chloride (1/2 Normal Saline) 1,000 mls @ 30 mls/hr IV ASDIR [facility] Last Admin: 03/29/18 19:00 Dose: 30 mls/hr Insulin Aspart (Novolog Vial Sliding Scale -) 1 vial SQ [facility]; Protocol Last Admin: 03/30/18 12:10 Dose: Not Given Morphine Sulfate (Morphine Sulfate) 2 mg IVPUSH Q4H PRN PRN Reason: PAIN LEVEL 7 - 10 Oxycodone HCl (Roxicodone -) 5 mg PO Q4H PRN PRN Reason: PAIN LEVEL 6-10 Last Admin: 03/30/18 11:37 Dose: 5 mg Pantoprazole Sodium (Protonix -) 40 mg PO DAILY [facility] Last Admin: 03/30/18 09:06 Dose: 40 mg IMAGING: * Hip/Pelvis x-ray: Acute left femoral intertrochanteric fx * CXR: No acute pathology. ASSESSMENT/PLAN: 57 yo F PMH of NIDDM, B/L partial knee replacement, cholecystectomy, appendectomy, R carpal tunnel repair, pilonidal cyst removal, PTSD and MDD, presents following a L side mechanical fall and found w/ L hip frx. #Left hip fracture s/p Mechanical fall; s/p L gamma nail sx, POD #1 -Pt currently stable and in some pain post-op. -PT consult placed -IV 0.45% NaCl at 30 ml/hour -Morphine 2 mg Q6H IVP and Oxycodone 5 mg PO Q4H PRN for pain -Can start bowel regimen following surgery -Leukocytosis likely 2/2 stress, but will send UA to exclude infection. -Avoid Naprosyn and Meloxicam because potential renal and GI side effects. -Possible bone fragility w/ elevated Alk Phos and fracture in middle/elderly aged pt. Will order PTH to w/u possible causes of acute frx; PTH pending #MDD Cont home med: -Fluoxetine 40 mg PO QD consider restarting other home psych meds may need med rec for hydroxyzine #DM - per pt last A1c 7.6 -hold home diabetes drugs; A1c 8.5 -BGM ACHS -ISS #FEN -1/2NS at 30 -recheck lytes in AM -NPO for surgery #Prophylaxis -DVT: SCDs. Start Lovenox post op once cleared by surg -GI: Protonix 40 mg PO QD Dispo -cont to monitor on med-surg -full code Visit type - Emergency Visit Emergency Visit: Yes ED Registration Date: 03/29/18 Care time: The patient presented to the Emergency Department on the above date and was hospitalized for further evaluation of their emergent condition. - New Patient This patient is new to me today: No - Critical Care Critical Care patient: No
[2018-03-30 08:12] LABS: ALBUMIN 3.2 g/dl (3.4-5.0); ALK PHOS 71 U/L (45-117); ANION GAP 7 MMOL/L (8-16); BILIRUBIN,TOTAL 0.5 mg/dL (0.2-1); BLOOD UREA NITROGEN 18 mg/dL (7-18); CALCIUM 8.3 mg/dL (8.5-10.1); CHLORIDE 102 mmol/L (98-107); CO2 26 mmol/L (21-32); GLUCOSE,RANDOM 177 mg/dL (74-106); POTASSIUM 4.1 mmol/L (3.5-5.1); SGOT/AST 20 U/L (15-37); SGPT/ALT 33 U/L (13-61); SODIUM 135 mmol/L (136-145); TOT PROT 6.2 g/dl (6.4-8.2)
[2018-03-30] MEDS ORDERED: PT OWN MED DRAWER 7, Y5N ONE (08:56)
[2018-03-30] MEDS: ENOXAPARIN NA (PORCINE) 40 MG/0.4 ML DISP.SYRIN SQ SCH (09:06)
[2018-03-30] MEDS: PANTOPRAZOLE 40 MG TABLET (FP) PO SCH (09:06)
[2018-03-30] MEDS: FLUoxetine HCL 20 MG CAPSULE (FP) PO SCH (09:06)
[2018-03-30] MEDS ORDERED: ENOXAPARIN NA (PORCINE) 40 MG/0.4 ML DISP.SYRIN SQ SCH (10:00)
[2018-03-30] MEDS: oxyCODONE HCL 5 MG TABLET PO PRN ×3 (11:37→20:48)
[2018-03-30] MEDS: LACTATED RINGERS SOLUTION 1,000 ML IV SCH (16:47)
[2018-03-30] MEDS: SODIUM CHLORIDE 0.45% 1,000 ML IV SCH (16:47)
--- NOTE | 2018-03-30 17:30 | PN ---
Teaching Attending Note Name of Resident: Henrietta Goddard ATTENDING PHYSICIAN STATEMENT I saw and evaluated the patient. I reviewed the resident's note and discussed the case with the resident. I agree with the resident's findings and plan as documented. SUBJECTIVE: Patient is feeling better with no acute distress. OBJECTIVE: Vital Signs Temperature 98.1 F 03/30/18 14:00 Pulse Rate 60 03/30/18 14:00 Respiratory Rate 18 03/30/18 14:00 Blood Pressure 128/58 L 03/30/18 14:00 O2 Sat by Pulse Oximetry (%) 96 03/30/18 09:00 GENERAL: Lethargic, alert, and fully oriented, in no acute distress. HEAD: Normal with no signs of trauma. EYES: Pupils equal, round and reactive to light, extraocular movements intact, sclera anicteric, conjunctiva clear. EARS, NOSE, THROAT: Ears normal, oropharynx clear without exudates. Moist mucous membranes. NECK: Normal range of motion, supple without lymphadenopathy, JVD, or masses. LUNGS: Breath sounds equal, clear to auscultation bilaterally. No wheezes, and no crackles. No accessory muscle use. HEART: Regular rate and rhythm, normal S1 and S2 without murmur, rub or gallop. ABDOMEN: Soft, nontender, not distended, normoactive bowel sounds, no guarding, no rebound, no masses. EXTREMITIES: 2+ pulses, warm, well-perfused. s/p Left hip surgery NEUROLOGICAL: Cranial nerves II-XII intact. Normal speech. PSYCHIATRIC: Cooperative. Good eye contact. Appropriate mood and affect. SKIN: Warm, dry, normal turgor, no rashes or lesions noted, normal capillary refill. CBCD WBC 11.3 K/mm3 (4.0-10.0) H 03/30/18 06:00 RBC 3.44 M/mm3 (3.60-5.2) L 03/30/18 06:00 Hgb 10.2 GM/dL (10.7-15.3) L 03/30/18 06:00 Hct 31.4 % (32.4-45.2) L D 03/30/18 06:00 MCV 91.4 fl (80-96) 03/30/18 06:00 MCHC 32.6 g/dl (32.0-36.0) 03/30/18 06:00 RDW 13.6 % (11.6-15.6) 03/30/18 06:00 Plt Count 169 K/MM3 (134-434) D 03/30/18 06:00 MPV 9.5 fl (7.5-11.1) 03/30/18 06:00 CMP Sodium 135 mmol/L (136-145) L 03/30/18 06:00 Potassium 4.1 mmol/L (3.5-5.1) 03/30/18 06:00 Chloride 102 mmol/L (98-107) 03/30/18 06:00 Carbon Dioxide 26 mmol/L (21-32) 03/30/18 06:00 Anion Gap 7 MMOL/L (8-16) L 03/30/18 06:00 BUN 18 mg/dL (7-18) 03/30/18 06:00 Creatinine 1.0 mg/dL (0.55-1.3) 03/30/18 06:00 Creat Clearance w eGFR 56.95 (>60) 03/30/18 06:00 Random Glucose 177 mg/dL (74-106) H 03/30/18 06:00 Calcium 8.3 mg/dL (8.5-10.1) L 03/30/18 06:00 Total Bilirubin 0.5 mg/dL (0.2-1) 03/30/18 06:00 AST 20 U/L (15-37) 03/30/18 06:00 ALT 33 U/L (13-61) 03/30/18 06:00 Alkaline Phosphatase 71 U/L (45-117) 03/30/18 06:00 Total Protein 6.2 g/dl (6.4-8.2) L 03/30/18 06:00 Albumin 3.2 g/dl (3.4-5.0) L 03/30/18 06:00 Current Medications Generic Name Dose Route Start Last Admin Trade Name Freq PRN Reason Stop Dose Admin Acetaminophen 1,000 mg 03/29/18 15:32 03/30/18 11:39 Ofirmev Injection - IVPB 1,000 mg Q6H PRN Administration PAIN LEVEL 6-10 Enoxaparin Sodium 40 mg 03/30/18 10:00 03/30/18 09:06 Lovenox - SQ 40 mg DAILY [facility] Administration Fluoxetine HCl 40 mg 03/30/18 10:00 03/30/18 09:06 Prozac - PO Not Given DAILY [facility] Lactated Ringer's 1,000 mls @ 75 mls/hr 03/29/18 15:32 03/30/18 16:47 Lactated Ringers Solution IV Not Given ASDIR [facility] Sodium Chloride 1,000 mls @ 30 mls/hr 03/29/18 15:32 03/30/18 16:47 1/2 Normal Saline IV Not Given ASDIR [facility] Insulin Aspart 1 vial 03/29/18 16:30 03/30/18 16:48 Novolog Vial Sliding Scale - SQ 6 units ACHS [facility] Administration Protocol Morphine Sulfate 2 mg 03/30/18 10:18 Morphine Sulfate IVPUSH Q4H PRN PAIN LEVEL 7 - 10 Oxycodone HCl 5 mg 03/30/18 10:17 03/30/18 16:42 Roxicodone - PO 5 mg Q4H PRN Administration PAIN LEVEL 6-10 Pantoprazole Sodium 40 mg 03/30/18 10:00 03/30/18 09:06 Protonix - PO 40 mg DAILY [facility] Administration Home Medications Medication Instructions Recorded Fluoxetine HCl [Prozac] 40 mg PO DAILY 03/29/18 Hydroxyzine HCl 25 mg PO QID 03/29/18 Meloxicam 15 mg PO DAILY 03/29/18 Metformin HCl [Metformin HCl ER] 1,000 mg PO BID 03/29/18 Naproxen 500 mg PO BID 03/29/18 Omeprazole 40 mg PO DAILY 03/29/18 Prazosin HCl [Minipress] 2 mg PO HS 03/29/18 traZODone HCL [Desyrel -] 150 mg PO HS 03/29/18 ASSESSMENT AND PLAN: 57 yo F PMH of NIDDM, B/L partial knee replacement, cholecystectomy, appendectomy, R carpal tunnel repair, pilonidal cyst removal, PTSD and MDD, presents following a L side mechanical fall and found w/ L hip frx. #POD# 1 s/p Left hip fracture with repair s/p Mechanical fall . - #Hx of depresion : cont home med:Fluoxetine 40 mg PO QD #T2Dm A1c 8.5, BGM ACHS, ISS -DVT Px: SCDs. Start Lovenox post op once cleared by surg -GI: Protonix 40 mg PO QD PT evaluation , dc planning
[2018-03-30] MEDS: ACETAMINOPHEN 325 MG TABLET (FP) PO PRN (20:47)
[2018-03-31] MEDS: morphine SULFATE 4 MG/ML VIAL IVPUSH PRN ×5 (00:19→17:21)
[2018-03-31] MEDS: ACETAMINOPHEN 325 MG TABLET (FP) PO PRN ×4 (02:33→20:36)
[2018-03-31] MEDS: oxyCODONE HCL 5 MG TABLET PO PRN ×4 (02:33→20:35)
[2018-03-31 03:34] LABS: URINE APPEARANCE SLCLOUDY; URINE BILIRUBIN NEGATIVE (<2.0 mg/dL); URINE COLOR YELLOW; URINE GLUCOSE (UA) NEGATIVE (NEGATIVE); URINE KETONE NEGATIVE (NEGATIVE); URINE LEUK ESTERASE TRACE (NEGATIVE); URINE NITRITE NEGATIVE (NEGATIVE); URINE PROTEIN NEGATIVE (NEGATIVE); URINE UROBILINOGEN NEGATIVE mg/dL (0.2-1.0)
[2018-03-31 03:38] LABS: EPI CELLS MODERATE /HPF (FEW); URINE BACTERIA MODERATE /hpf (NONE SEEN); URINE MUCUS RARE
[2018-03-31] MEDS: INSULIN SLIDING SCALE (NOVOLOG) 1 VIAL SQ SCH ×4 (06:51→21:41)
[2018-03-31] MEDS ORDERED: INSULIN (NOVOLOG) ASPART 100 UNITS/ML 10ML VIAL ONE (06:57)
[2018-03-31 07:27] LABS: HEMATOCRIT 28.8 % (32.4-45.2); HEMOGLOBIN 10.3 GM/dL (10.7-15.3); MCH 32.1 pg (25.7-33.7); MCHC 35.8 g/dl (32.0-36.0); MEAN CELL VOLUME 89.7 fl (80-96); MEAN PLT VOLUME 9.7 fl (7.5-11.1); PLATELET COUNT 168 K/MM3 (134-434); RBC 3.22 M/mm3 (3.60-5.2); RDW 13.2 % (11.6-15.6); WHITE BLOOD COUNT 9.8 K/mm3 (4.0-10.0)
[2018-03-31 08:33] LABS: ANION GAP 7 MMOL/L (8-16); BLOOD UREA NITROGEN 12 mg/dL (7-18); CALCIUM 8.4 mg/dL (8.5-10.1); CHLORIDE 105 mmol/L (98-107); CO2 27 mmol/L (21-32); CREATININE 0.8 mg/dL (0.55-1.3); GLUCOSE,RANDOM 176 mg/dL (74-106); POTASSIUM 3.9 mmol/L (3.5-5.1); SODIUM 139 mmol/L (136-145)
[2018-03-31] MEDS: ENOXAPARIN NA (PORCINE) 40 MG/0.4 ML DISP.SYRIN SQ SCH (09:42)
[2018-03-31] MEDS: PANTOPRAZOLE 40 MG TABLET (FP) PO SCH (09:43)
[2018-03-31] MEDS: FLUoxetine HCL 20 MG CAPSULE (FP) PO SCH (09:43)
--- NOTE | 2018-03-31 09:55 | PN ---
Progress Note (short form) - Note Progress Note: AVSS COMFORTABLE BANDAGES DRY AND INTACT CALF SOFT AND NT NVI IMP: DOING WELL PLAN: OOB, PT-WBAT, DC PLANNING
--- NOTE | 2018-03-31 12:03 | PN ---
Physical Exam: SUBJECTIVE: Patient seen and examined at bedside. No acute events overnight. Pt seen comfortable in bed eating breakfast. Still has pain, but well-controlled. OBJECTIVE: Vital Signs Temperature 98.3 F 03/31/18 08:13 Pulse Rate 66 03/31/18 08:13 Respiratory Rate 20 03/31/18 08:13 Blood Pressure 117/68 03/31/18 08:13 O2 Sat by Pulse Oximetry (%) 93 L 03/30/18 21:00 GENERAL: AAOx3. NAD. HEENT: AT/NC. EOMI. DAYAMI. Moist mucus membranes. No facial droop noted. NECK: Supple. No LAD/JVD. LUNGS: CTA B/L. No wheezes noted. HEART: RRR. Normal S1, S2. No murmurs noted. ABDOMEN: Obese. Soft NT/ND. Hypoactive bowel sounds. EXTREMITIES: 2+ pulses, warm, well-perfused, no edema. L hip seen with surgical dressing c/d/i. Slight visible blood noted on dressing, but unchanged since yesterday. NEUROLOGICAL: Follows commands. Normal speech. PSYCH: Normal mood, normal affect. SKIN: Warm, dry, normal turgor, no rashes or lesions noted CBCD WBC 9.8 K/mm3 (4.0-10.0) 03/31/18 06:30 RBC 3.22 M/mm3 (3.60-5.2) L 03/31/18 06:30 Hgb 10.3 GM/dL (10.7-15.3) L 03/31/18 06:30 Hct 28.8 % (32.4-45.2) L 03/31/18 06:30 MCV 89.7 fl (80-96) 03/31/18 06:30 MCHC 35.8 g/dl (32.0-36.0) 03/31/18 06:30 RDW 13.2 % (11.6-15.6) 03/31/18 06:30 Plt Count 168 K/MM3 (134-434) 03/31/18 06:30 MPV 9.7 fl (7.5-11.1) 03/31/18 06:30 CMP Sodium 139 mmol/L (136-145) 03/31/18 06:30 Potassium 3.9 mmol/L (3.5-5.1) 03/31/18 06:30 Chloride 105 mmol/L (98-107) 03/31/18 06:30 Carbon Dioxide 27 mmol/L (21-32) 03/31/18 06:30 Anion Gap 7 MMOL/L (8-16) L 03/31/18 06:30 BUN 12 mg/dL (7-18) 03/31/18 06:30 Creatinine 0.8 mg/dL (0.55-1.3) 03/31/18 06:30 Creat Clearance w eGFR > 60 (>60) 03/31/18 06:30 Calcium 8.4 mg/dL (8.5-10.1) L 03/31/18 06:30 Total Bilirubin 0.5 mg/dL (0.2-1) 03/30/18 06:00 AST 20 U/L (15-37) 03/30/18 06:00 ALT 33 U/L (13-61) 03/30/18 06:00 Alkaline Phosphatase 71 U/L (45-117) 03/30/18 06:00 Total Protein 6.2 g/dl (6.4-8.2) L 03/30/18 06:00 Albumin 3.2 g/dl (3.4-5.0) L 03/30/18 06:00 Active Medications Acetaminophen (Tylenol -) 650 mg PO Q4H PRN PRN Reason: PAIN LEVEL 6-10 Last Admin: 03/31/18 09:43 Dose: 650 mg Docusate Sodium (Colace -) 100 mg PO DAILY [facility] Enoxaparin Sodium (Lovenox -) 40 mg SQ DAILY [facility] Last Admin: 03/31/18 09:42 Dose: 40 mg Fluoxetine HCl (Prozac -) 40 mg PO DAILY [facility] Last Admin: 03/31/18 09:43 Dose: 40 mg Lactated Ringer's (Lactated Ringers Solution) 1,000 mls @ 75 mls/hr IV ASDIR [facility] Last Admin: 03/30/18 16:47 Dose: Not Given Sodium Chloride (1/2 Normal Saline) 1,000 mls @ 30 mls/hr IV ASDIR [facility] Last Admin: 03/30/18 16:47 Dose: Not Given Insulin Aspart (Novolog Vial Sliding Scale -) 1 vial SQ [facility]; Protocol Last Admin: 03/31/18 10:54 Dose: 4 units Morphine Sulfate (Morphine Sulfate) 2 mg IVPUSH Q4H PRN PRN Reason: PAIN LEVEL 7 - 10 Last Admin: 03/31/18 08:38 Dose: 2 mg Oxycodone HCl (Roxicodone -) 5 mg PO Q4H PRN PRN Reason: PAIN LEVEL 6-10 Last Admin: 03/31/18 09:43 Dose: 5 mg Pantoprazole Sodium (Protonix -) 40 mg PO DAILY [facility] Last Admin: 03/31/18 09:43 Dose: 40 mg Polyethylene Glycol (Miralax (For Daily Use) -) 17 gm PO DAILY [facility] Senna (Senna -) 1 tab PO HS [facility] IMAGING: * Hip/Pelvis x-ray: Acute left femoral intertrochanteric fx * CXR: No acute pathology. ASSESSMENT/PLAN: 57 yo F PMH of NIDDM, B/L partial knee replacement, cholecystectomy, appendectomy, R carpal tunnel repair, pilonidal cyst removal, PTSD and MDD, presents following a L side mechanical fall and found w/ L hip frx. #Left hip fracture s/p Mechanical fall; s/p L gamma nail sx, POD #2 (03/29/18) -Pt currently stable, pain controlled. Per PT, able to ambulate 5 feet with rolling walker. Cont PT. -Morphine 2 mg Q6H IVP and Oxycodone 5 mg PO Q4H PRN for pain -Can start bowel regimen following surgery -Leukocytosis likely 2/2 stress, but will send UA to exclude infection. -Avoid Naprosyn and Meloxicam because potential renal and GI side effects. -Possible bone fragility w/ elevated Alk Phos and fracture in middle/elderly aged pt. Will order PTH to w/u possible causes of acute frx; PTH pending #MDD Cont home med: -Fluoxetine 40 mg PO QD consider restarting other home psych meds may need med rec for hydroxyzine #DM - per pt last A1c 7.6 -hold home diabetes drugs; A1c 8.5 -BGM ACHS -ISS #FEN -1/2NS at 30 -recheck lytes in AM -Diabetic diet #Prophylaxis -DVT: SCDs. Start Lovenox post op once cleared by surg -GI: Protonix 40 mg PO QD Dispo -cont to monitor on med-surg -full code Visit type - Emergency Visit Emergency Visit: Yes ED Registration Date: 03/29/18 Care time: The patient presented to the Emergency Department on the above date and was hospitalized for further evaluation of their emergent condition. - New Patient This patient is new to me today: No - Critical Care Critical Care patient: No
[2018-03-31] MEDS: DOCUSATE SODIUM 100 MG CAPSULE (FP) PO SCH (12:59)
[2018-03-31] MEDS: LACTATED RINGERS SOLUTION 1,000 ML IV SCH (18:22)
[2018-03-31] MEDS: SODIUM CHLORIDE 0.45% 1,000 ML IV SCH (18:22)
--- NOTE | 2018-03-31 19:50 | PN ---
Teaching Attending Note Name of Resident: Henrietta Goddard ATTENDING PHYSICIAN STATEMENT I saw and evaluated the patient. I reviewed the resident's note and discussed the case with the resident. I agree with the resident's findings and plan as documented. SUBJECTIVE: Patient is feeling better, but continues to have pain , had a PT today. OBJECTIVE: Vital Signs Temperature 98.3 F 03/31/18 14:00 Pulse Rate 66 03/31/18 14:00 Respiratory Rate 18 03/31/18 14:00 Blood Pressure 108/55 L 03/31/18 14:00 O2 Sat by Pulse Oximetry (%) 93 L 03/31/18 09:00 GENERAL: Lethargic, alert, and fully oriented, in no acute distress. HEAD: Normal with no signs of trauma. EYES: Pupils equal, round and reactive to light, extraocular movements intact, sclera anicteric, conjunctiva clear. EARS, NOSE, THROAT: Ears normal, oropharynx clear without exudates. Moist mucous membranes. NECK: Normal range of motion, supple without lymphadenopathy, JVD, or masses. LUNGS: Breath sounds equal, clear to auscultation bilaterally. No wheezes, and no crackles. No accessory muscle use. HEART: Regular rate and rhythm, normal S1 and S2 without murmur, rub or gallop. ABDOMEN: Soft, nontender, not distended, normoactive bowel sounds, no guarding, no rebound, no masses. EXTREMITIES: 2+ pulses, warm, well-perfused. s/p Left hip surgery NEUROLOGICAL: Cranial nerves II-XII intact. Normal speech. PSYCHIATRIC: Cooperative. Good eye contact. Appropriate mood and affect. SKIN: Warm, dry, normal turgor, no rashes or lesions noted, normal capillary refill. CBCD WBC 9.8 K/mm3 (4.0-10.0) 03/31/18 06:30 RBC 3.22 M/mm3 (3.60-5.2) L 03/31/18 06:30 Hgb 10.3 GM/dL (10.7-15.3) L 03/31/18 06:30 Hct 28.8 % (32.4-45.2) L 03/31/18 06:30 MCV 89.7 fl (80-96) 03/31/18 06:30 MCHC 35.8 g/dl (32.0-36.0) 03/31/18 06:30 RDW 13.2 % (11.6-15.6) 03/31/18 06:30 Plt Count 168 K/MM3 (134-434) 03/31/18 06:30 MPV 9.7 fl (7.5-11.1) 03/31/18 06:30 CMP Sodium 139 mmol/L (136-145) 03/31/18 06:30 Potassium 3.9 mmol/L (3.5-5.1) 03/31/18 06:30 Chloride 105 mmol/L (98-107) 03/31/18 06:30 Carbon Dioxide 27 mmol/L (21-32) 03/31/18 06:30 Anion Gap 7 MMOL/L (8-16) L 03/31/18 06:30 BUN 12 mg/dL (7-18) 03/31/18 06:30 Creatinine 0.8 mg/dL (0.55-1.3) 03/31/18 06:30 Creat Clearance w eGFR > 60 (>60) 03/31/18 06:30 Random Glucose 176 mg/dL (74-106) H 03/31/18 06:30 Calcium 8.4 mg/dL (8.5-10.1) L 03/31/18 06:30 Total Bilirubin 0.5 mg/dL (0.2-1) 03/30/18 06:00 AST 20 U/L (15-37) 03/30/18 06:00 ALT 33 U/L (13-61) 03/30/18 06:00 Alkaline Phosphatase 71 U/L (45-117) 03/30/18 06:00 Total Protein 6.2 g/dl (6.4-8.2) L 03/30/18 06:00 Albumin 3.2 g/dl (3.4-5.0) L 03/30/18 06:00 Current Medications Generic Name Dose Route Start Last Admin Trade Name Freq PRN Reason Stop Dose Admin Acetaminophen 650 mg 03/30/18 20:02 03/31/18 15:51 Tylenol - PO 650 mg Q4H PRN Administration PAIN LEVEL 6-10 Docusate Sodium 100 mg 03/31/18 12:15 03/31/18 12:59 Colace - PO 100 mg DAILY GUILLERMO Administration Enoxaparin Sodium 40 mg 03/30/18 10:00 03/31/18 09:42 Lovenox - SQ 40 mg DAILY GUILLERMO Administration Fluoxetine HCl 40 mg 03/30/18 10:00 03/31/18 09:43 Prozac - PO 40 mg DAILY GUILLERMO Administration Lactated Ringer's 1,000 mls @ 75 mls/hr 03/29/18 15:32 03/31/18 18:22 Lactated Ringers Solution IV Not Given ASDIR GUILLERMO Sodium Chloride 1,000 mls @ 30 mls/hr 03/29/18 15:32 03/31/18 18:22 1/2 Normal Saline IV Not Given ASDIR GUILLERMO Insulin Aspart 1 vial 03/29/18 16:30 03/31/18 17:21 Novolog Vial Sliding Scale - SQ 4 units ACHS GUILLERMO Administration Protocol Morphine Sulfate 2 mg 03/30/18 10:18 03/31/18 17:21 Morphine Sulfate IVPUSH 2 mg Q4H PRN Administration PAIN LEVEL 7 - 10 Oxycodone HCl 5 mg 03/30/18 10:17 03/31/18 15:51 Roxicodone - PO 5 mg Q4H PRN Administration PAIN LEVEL 6-10 Pantoprazole Sodium 40 mg 03/30/18 10:00 03/31/18 09:43 Protonix - PO 40 mg DAILY [facility] Administration Polyethylene Glycol 17 gm 04/01/18 10:00 Miralax (For Daily Use) - PO DAILY [facility] Senna 1 tab 03/31/18 22:00 Senna - PO HS [facility] Home Medications Medication Instructions Recorded Fluoxetine HCl [Prozac] 40 mg PO DAILY 03/29/18 Hydroxyzine HCl 25 mg PO QID 03/29/18 Meloxicam 15 mg PO DAILY 03/29/18 Metformin HCl [Metformin HCl ER] 1,000 mg PO BID 03/29/18 Naproxen 500 mg PO BID 03/29/18 Omeprazole 40 mg PO DAILY 03/29/18 Prazosin HCl [Minipress] 2 mg PO HS 03/29/18 traZODone HCL [Desyrel -] 150 mg PO HS 03/29/18 ASSESSMENT AND PLAN: 57 yo F PMH of NIDDM, B/L partial knee replacement, cholecystectomy, appendectomy, R carpal tunnel repair, pilonidal cyst removal, PTSD and MDD, presents following a L side mechanical fall and found w/ L hip frx. #POD# 2 s/p Left hip fracture with repair s/p Mechanical fall . - #Hx of depresion : cont home med:Fluoxetine 40 mg PO QD #T2Dm A1c 8.5, BGM ACHS, ISS -DVT Px: SCDs. Start Lovenox post op once cleared by surg -GI: Protonix 40 mg PO QD PT evaluation , dc planning rehab.
[2018-03-31] MEDS ORDERED: SENNOSIDES 8.6MG TABLET (FP) PO SCH (22:00)
[2018-04-01] MEDS: ACETAMINOPHEN 325 MG TABLET (FP) PO PRN ×3 (00:35→14:23)
[2018-04-01] MEDS: oxyCODONE HCL 5 MG TABLET PO PRN ×3 (00:35→14:23)
[2018-04-01] MEDS: MORPHINE SULFATE 2 MG/ML VIAL IVPUSH PRN ×3 (01:05→11:04)
[2018-04-01] MEDS: INSULIN SLIDING SCALE (NOVOLOG) 1 VIAL SQ SCH ×2 (07:07→11:09)
[2018-04-01 08:11] LABS: HEMATOCRIT 30.3 % (32.4-45.2); HEMOGLOBIN 10.1 GM/dL (10.7-15.3); MCH 30.3 pg (25.7-33.7); MCHC 33.2 g/dl (32.0-36.0); MEAN CELL VOLUME 91.2 fl (80-96); MEAN PLT VOLUME 8.6 fl (7.5-11.1); PLATELET COUNT 172 K/MM3 (134-434); RBC 3.32 M/mm3 (3.60-5.2); RDW 13.3 % (11.6-15.6); WHITE BLOOD COUNT 9.3 K/mm3 (4.0-10.0)
--- NOTE | 2018-04-01 08:35 | PN ---
Progress Note (short form) - Note Progress Note: Ortho Pt seen and examined s/p right IM gamma nail Selected Entries 03/31/18 04/01/18 20:54 06:00 Temperature 98.1 F Pulse Rate 60 Respiratory 17 Rate Blood Pressure 123/53 L Laboratory Tests 04/01/18 07:00 WBC 9.3 Hgb 10.1 L Hct 30.3 L Plt Count 172 dressing c/d/i, calf soft, nt nvi a/p PT wbat dvt ppx pain control d/c planning
[2018-04-01 08:45] LABS: ANION GAP 7 MMOL/L (8-16); BLOOD UREA NITROGEN 11 mg/dL (7-18); CALCIUM 8.1 mg/dL (8.5-10.1); CHLORIDE 102 mmol/L (98-107); CO2 29 mmol/L (21-32); CREATININE 0.8 mg/dL (0.55-1.3); GLUCOSE,RANDOM 162 mg/dL (74-106); POTASSIUM 3.7 mmol/L (3.5-5.1); SODIUM 138 mmol/L (136-145)
[2018-04-01] MEDS ORDERED: PT OWN MED DRAWER 7, Y5N ONE (09:24)
[2018-04-01] MEDS: PANTOPRAZOLE 40 MG TABLET (FP) PO SCH (09:26)
[2018-04-01] MEDS: FLUoxetine HCL 20 MG CAPSULE (FP) PO SCH (09:27)
[2018-04-01] MEDS: ENOXAPARIN NA (PORCINE) 40 MG/0.4 ML DISP.SYRIN SQ SCH (09:27)
[2018-04-01] MEDS: DOCUSATE SODIUM 100 MG CAPSULE (FP) PO SCH (09:27)
[2018-04-01] MEDS ORDERED: POLYETHYLENE GLYCOL 3350 119 GM BTL PO SCH (10:00)
--- NOTE | 2018-04-01 14:29 | PN ---
Teaching Attending Note Name of Resident: Henrietta Goddard ATTENDING PHYSICIAN STATEMENT I saw and evaluated the patient. I reviewed the resident's note and discussed the case with the resident. I agree with the resident's findings and plan as documented. SUBJECTIVE: No fever or chills . has pain in L hip. No cp or SOB. No diarrhea OBJECTIVE: NAD Cv: RRR, 2/6 SM at LUSB Lungs: CTAB Ext : L lateral thigh dressing with minimal blood staining. increased circumference of L thigh . DP 2+ and has nl sensation and motor of L foot ASSESSMENT AND PLAN: 57 y/o lady with h/o DM , CCY, appendectomy, b/l partial knee replacement ,PTSD , depression and other medical problems who presented with L hip apain after a fall and was found to have L hip Fx. 1- L hip Fx, s/p gamma nailing . POD 3 - cont pain control with oxy . dc morphine - PT - WBAT - DC IVF - cont lovenox after dc x 14 days . if fully ambulatory before that , can stop it 2- DM : cont her home metformin 3- depression : cont Fluoxetine dispo : Dc to rehab today
--- NOTE | 2018-04-01 14:42 | DS ---
Physical Exam: SUBJECTIVE: Patient seen and examined. No acute events overnight. OBJECTIVE: Vital Signs Temperature 99.2 F 04/01/18 15:43 Pulse Rate 62 04/01/18 15:43 Respiratory Rate 18 04/01/18 15:43 Blood Pressure 113/66 04/01/18 15:43 O2 Sat by Pulse Oximetry (%) 93 L 04/01/18 09:00 PHYSICAL EXAM GENERAL: AAOx3. NAD. HEENT: AT/NC. EOMI. DAYAMI. Moist mucus membranes. No facial droop noted. NECK: Supple. No LAD/JVD. LUNGS: CTA B/L. No wheezes noted. HEART: RRR. Normal S1, S2. No murmurs noted. ABDOMEN: Obese. Soft NT/ND. Hypoactive bowel sounds. EXTREMITIES: 2+ pulses, warm, well-perfused, no edema. L hip seen with surgical dressing c/d/i. Slight visible blood noted on dressing, but unchanged since yesterday. NEUROLOGICAL: Follows commands. Normal speech. PSYCH: Normal mood, normal affect. SKIN: Warm, dry, normal turgor, no rashes or lesions noted LABS CBCD WBC 9.3 K/mm3 (4.0-10.0) 04/01/18 07:00 RBC 3.32 M/mm3 (3.60-5.2) L 04/01/18 07:00 Hgb 10.1 GM/dL (10.7-15.3) L 04/01/18 07:00 Hct 30.3 % (32.4-45.2) L 04/01/18 07:00 MCV 91.2 fl (80-96) 04/01/18 07:00 MCHC 33.2 g/dl (32.0-36.0) 04/01/18 07:00 RDW 13.3 % (11.6-15.6) 04/01/18 07:00 Plt Count 172 K/MM3 (134-434) 04/01/18 07:00 MPV 8.6 fl (7.5-11.1) D 04/01/18 07:00 CMP Sodium 138 mmol/L (136-145) 04/01/18 07:00 Potassium 3.7 mmol/L (3.5-5.1) 04/01/18 07:00 Chloride 102 mmol/L (98-107) 04/01/18 07:00 Carbon Dioxide 29 mmol/L (21-32) 04/01/18 07:00 Anion Gap 7 MMOL/L (8-16) L 04/01/18 07:00 BUN 11 mg/dL (7-18) 04/01/18 07:00 Creatinine 0.8 mg/dL (0.55-1.3) 04/01/18 07:00 Creat Clearance w eGFR > 60 (>60) 04/01/18 07:00 Calcium 8.1 mg/dL (8.5-10.1) L 04/01/18 07:00 Total Bilirubin 0.5 mg/dL (0.2-1) 03/30/18 06:00 AST 20 U/L (15-37) 03/30/18 06:00 ALT 33 U/L (13-61) 03/30/18 06:00 Alkaline Phosphatase 71 U/L (45-117) 03/30/18 06:00 Total Protein 6.2 g/dl (6.4-8.2) L 03/30/18 06:00 Albumin 3.2 g/dl (3.4-5.0) L 03/30/18 06:00 HOSPITAL COURSE: Date of Admission:03/29/18 IMAGING: * Hip/Pelvis x-ray: Acute left femoral intertrochanteric fx * CXR: No acute pathology. 57 yo F PMH of NIDDM, B/L partial knee replacement, cholecystectomy, appendectomy, R carpal tunnel repair, pilonidal cyst removal, PTSD and MDD, presents following a L side mechanical fall. In the ED, hip/pelvis xray was done that showed acute L femoral intertrochanteric fx. Pt was subsequently evaluated by ortho with recommendation to undergo surgery for L hip fx repair. Pt later underwent L gamma nail procedure with ortho for L hip fx repair. Surgery was uneventful with no complications. Afterwards, pt was monitored in the hospital for post-op care and was seen by PT. Her symptoms improved and she was discharged to SNF for continued rehab. Additionally, due to high risk for DVT, she was continued on Lovenox for DVT ppx. She was given recommendation to follow up with her PCP as well as orthopedic surgeon for post-op evaluation outpatient. Date of Discharge: 04/01/18 Minutes to complete discharge: 40 Discharge Summary Reason For Visit: FRACTURE OF LEFT FEMUR Condition: Improved - Instructions Diet, Activity, Other Instructions: You were seen in the hospital after a fall injury. Imaging studies were done and you were found to have a left hip fracture. You were seen by an orthopedic surgeon and underwent surgery for your hip fracture. After surgery, you were seen by physical therapy to help with your mobility. Your symptoms improved throughout your hospital stay. You are being discharged to a detention facility for continuation of physical therapy/ rehabilitation. MEDICAL RECOMMDENDATIONS Please stop taking all NSAIDs as it can cause GI and kidney side effects. We have added the following medication(s) to your regimen: Please take Lovenox 40 mg via subcutaneous injection once a day for the next 14 days to prevent blood clots. If you are fully ambulating on your own, you may discontinue taking Lovenox before 14 days. For constipation, please also take the following: Miralaz 17 mg once a day Colace 100 mg once a day Senna 1 tab at night Please continue taking the rest of your home meds as directed. CONSULT RECOMMENDATIONS Please follow up with your orthopedic surgeon, Dr. Huff , for post-op evaluation within 1 week. Please also follow up with your primary care physician when you go back home to [place]. If you need a primary care physician within the area, you may make an appointment at the residency clinic of [facility]. The clinic is open Thursday-Thursday, 9-5pm. You may make an appointment with Dr. Goddard on Fridays, 1-4pm. If you experience intractable hip pain, immobility, altered mental status, or another fall, please proceed to your nearest emergency room immediately. Referrals: [facility] [place] [facility] [place] [Provider Group] - 1 Week Henrietta Goddard RES [Resident] - 1 Week Maynor Huff MD [Staff Physician] - 1 Week Disposition: [facility] - Home Medications Comprehensive Discharge Medication List: Ambulatory Orders Fluoxetine HCl [Prozac] 40 mg PO BID 03/29/18 Omeprazole 40 mg PO DAILY 03/29/18 Prazosin HCl [Minipress] 2 mg PO HS 03/29/18 traZODone HCL [Desyrel -] 150 mg PO HS 03/29/18 Docusate Sodium [Colace -] 100 mg PO DAILY capsule 04/01/18 Enoxaparin [Lovenox -] 40 mg SQ DAILY #14 disp.syrin 04/01/18 Metformin HCl [Metformin HCl ER] 1,000 mg PO BID 04/01/18 Polyethylene Glycol 3350 [Miralax 119 gm Btl -] 17 gm PO DAILY bottle 04/01/18 Sennosides [Senna -] 1 tab PO HS tablet 04/01/18 oxyCODONE HCL [Roxicodone -] 10 mg PO Q4H PRN tablet MDD 60 04/01/18 This patient is new to me today: No Emergency Visit: Yes ED Registration Date: 03/29/18 Care time: The patient presented to the Emergency Department on the above date and was hospitalized for further evaluation of their emergent condition. Critical Care patient: No - Discharge Referral Referred to [facility] No
[2018-04-01 15:44] VITALS: BP 113/66; PULSE 62; TEMP 99.2
== END 2018-04-01 16:33 | DRG 481 ==
LOC: JER 00:33 → JERBED 01:29 → J6S 18:30
PROVIDERS: ADMIT Internal Medicine; ATTEND Internal Medicine
PROC: 0QS706Z Reposition Left Upper Femur with Intramedullary Internal Fixation Device, Open Approach (ICD-10-PCS; principal; 2018-03-29 15:30)
DX: S72.145A Nondisplaced intertrochanteric fracture of left femur, initial encounter for closed fracture (principal); D62 Acute posthemorrhagic anemia; E11.9 Type 2 diabetes mellitus without complications; F32.9 Major depressive disorder, single episode, unspecified; W19.XXXA Unspecified fall, initial encounter; Y93.9 Activity, unspecified; Y92.090 Kitchen in other non-institutional residence as the place of occurrence of the external cause; Y99.9 Unspecified external cause status
CPT/HCPCS: 36415; 70450-TC; 71045-TC-FY; 73523-TC-FY; 80048; 80053; 81003; 81015; 82962; 83036; 83735; 83970; 84100; 85025; 85027; 85610; 85730; 86850; 86900; 86901; 93005; 93010; 94010; 94760; 97116-GP; 97162-GP; 99284-25; J0131